=== PATIENT | female | born 1985 | race African-American/Black ===

== ENCOUNTER 2021-07-25 10:24 | Emergency (ER) | payer MEDICAID ==
[~2021-07-25] VITALS: Ht 157.5 cm; Wt 55.0 kg
[2021-07-25] MEDS ORDERED: HYDROCODONE/ACETAMINOPHEN 5/325MG TABLET PO ONE (11:00)
[2021-07-25] MEDS ORDERED: NAP5EC MT (11:01)
[2021-07-25 11:19] VITALS: BP 110/60
== END 2021-07-25 11:49 | disposition home or self-care (01) ==
LOC: ER 10:37
DX: R51.9 Headache, unspecified (principal); M54.50 Low back pain, unspecified; M54.2 Cervicalgia; V43.52XA Car driver injured in collision with other type car in traffic accident, initial encounter; Y93.89 Activity, other specified; Y92.488 Other paved roadways as the place of occurrence of the external cause
CPT/HCPCS: 81025; 99283